=== PATIENT | female | born 1985 | race Caucasian/White ===

== ENCOUNTER 2016-08-29 23:18 | Emergency (ER) | payer SELFPAY ==
[2016-08-29] MEDS ORDERED: Bacitracin Oint 1 GM U/D Packet TOP ONE (23:29)
[2016-08-29] MEDS ORDERED: Diphtheria,Pertussis(Acell),Tetanus Vaccine 0.5 ML SDV IM ONE (23:29)
[2016-08-29] MEDS ORDERED: Lidocaine 1% 30 ML SDV INJECT ONE (23:29)
[2016-08-29 23:53] VITALS: BP 111/54
--- NOTE | 2016-08-30 00:16 | EDM.PDOC ---
ED HPI GENERAL MEDICAL PROBLEM - General Chief Complaint: Laceration Stated Complaint: CUT ON ARM [id number] Time Seen by Provider: 08/29/16 23:28 Source of Information: Reports: Patient History Limitations: Reports: No Limitations - History of Present Illness INITIAL COMMENTS - FREE TEXT/NARRATIVE: This 31 yo female patient reports to the ED with a laceration to her left forearm. The patient reports she was having "primer boxer wars" with her brother this morning at about 1100 when the injury happened. The patient has been attempting to control the bleeding since the time of the incident. Onset Date: 08/29/16 Onset Time: 11:00 Duration: Constant Location: Reports: Upper Extremity, Left Quality: Reports: Ache, Dull Severity: Mild Improves with: Reports: None Worsens with: Reports: None Context: Reports: Other Associated Symptoms: Reports: No Other Symptoms Left Lower Arm Pain Score (Numeric/FACES): 7 - Related Data Allergies Allergy/AdvReac Type Severity Reaction Status Date / Time ketorolac [From Toradol] Allergy Itching Verified 08/29/16 23:52 Home Meds: Home Meds . [No Known Home Meds] 08/29/16 [History] Past Medical History - Past Health History Medical/Surgical History: Denies Medical/Surgical History Social & Family History - Tobacco Use Smoking Status *Q: Current Every Day Smoker Years of Tobacco use: 20 Packs/Tins Daily: 0.5 Used Tobacco, but Quit: No - Caffeine Use Caffeine Use: Reports: Coffee, Soda - Recreational Drug Use Recreational Drug Use: No ED ROS GENERAL - Review of Systems Review Of Systems: ROS reveals no pertinent complaints other than HPI. ED EXAM, SKIN/RASH Exam: See Below Exam Limited By: No Limitations General Appearance: Alert, WD/WN, Anxious Eye Exam: Bilateral Eye: EOMI, Normal Inspection, PERRL Ears: Normal External Exam, Normal Canal, Hearing Grossly Normal, Normal TMs Nose: Normal Inspection, Normal Mucosa, No Blood Throat/Mouth: Normal Inspection, Normal Lips, Normal Teeth, Normal Gums, Normal Oropharynx, Normal Voice, No Airway Compromise Head: Atraumatic Neck: Normal Inspection, Supple, Non-Tender, Full Range of Motion Respiratory/Chest: No Respiratory Distress, Lungs Clear, Normal Breath Sounds, No Accessory Muscle Use, Chest Non-Tender Cardiovascular: Normal Peripheral Pulses, Regular Rate, Rhythm, No Edema, No Gallop, No JVD, No Murmur, No Rub GI/Abdominal: Normal Bowel Sounds, Soft, Non-Tender, No Organomegaly, No Distention, No Abnormal Bruit, No Mass (Female) Exam: Deferred Rectal (Female) Exam: Deferred Back Exam: Normal Inspection, Full Range of Motion, NT Extremities: Normal Range of Motion, No Pedal Edema, Normal Capillary Refill, Other (tenterness to the left forearm) Neurological: Alert, Oriented, CN II-XII Intact, Normal Cognition, Normal Gait, Normal Reflexes, No Motor/Sensory Deficits Psychiatric: Normal Affect, Normal Mood Skin: Warm, Dry, Normal Color, No Rash Location, Skin: Upper Extremity, Left Characteristics: Linear, Other (the patient had several other superficial lacerations to her forearm. The patient reports no intention to harm herself. ) ED SKIN PROCEDURES - Laceration/Wound Repair Left Arm Lac/Wound length In cm: 2.5 Appearance: Subcutaneous Anesthetic Type: Local Local Anesthesia - Lidocaine (Xylocaine): 1% Plain Local Anesthetic Volume: 3cc Skin Prep: Chlorhexidine (Hibiciens), Saline Exploration/Debridement/Repair: Wound Explored, in a Bloodless Field, Explored to Base, No Foreign Material Found Closed with: Sutures Suture Size: 4-0 # of Sutures: 8 Suture Type: Prolene, Interrupted, Simple Drain Placement: No Sterile Dressing Applied: Nurse Tetanus Status Addressed: Yes Complications: No Course - Vital Signs Last Recorded V/S: Last Vital Signs Temp 36.6 C 08/29/16 23:52 Pulse 86 08/29/16 23:52 Resp 16 08/29/16 23:52 BP 111/54 L 08/29/16 23:52 Pulse Ox 96 08/29/16 23:52 - Orders/Labs/Meds Orders: Active Orders 24 hr Category Date Time Status Vaccines to be Administered [RC] PER UNIT ROUTINE Care 08/29/16 23:29 Ordered Meds: Medications Discontinued Medications Generic Name Dose Route Start Last Admin Trade Name Freq PRN Reason Stop Dose Admin Bacitracin 1 dose 08/29/16 23:29 08/29/16 23:36 Bacitracin Oint 1 Gm TOP 08/29/16 23:30 1 dose ONETIME ONE Administration Diphtheria/Tetanus/Acell Pertussis 0.5 ml 08/29/16 23:29 07/03/17 23:37 Adacel IM 08/29/16 23:30 0.5 ml .ONCE ONE Administration Lidocaine HCl 30 ml 08/29/16 23:29 08/29/16 23:38 Xylocaine-Mpf 1% INJECT 08/29/16 23:30 30 ml ONETIME ONE Administration Departure - Departure Time of Disposition: 00:14 Disposition: Home, Self-Care 01 Condition: Fair Clinical Impression: Laceration of forearm, left Qualifiers: Encounter type: initial encounter Qualified Code(s): S51.812A - Laceration without foreign body of left forearm, initial encounter - Discharge Information Instructions: Laceration Care, Adult, [id number] Forms: ED Department Discharge Care Plan Goals: The patient was advised of the examination results during the visit. The laceration margins were well approximated during the visit. The patient was advised to keep the area clean and dry over the next 24 hours. The patient should have the sutures removed in 10-14 days. If the patient has any additional symptoms or concerns, the patient should follow-up with her primary care facility or return to the emergency department. - My Orders Last 24 Hours: My Active Orders 08/29/16 23:29 Vaccines to be Administered [RC] PER UNIT ROUTINE - Assessment/Plan Last 24 Hours: My Active Orders 08/29/16 23:29 Vaccines to be Administered [RC] PER UNIT ROUTINE
== END 2016-08-30 00:27 | disposition home or self-care (01) ==
LOC: DL.ED 23:18
DX: S51.812A Laceration without foreign body of left forearm, initial encounter (principal); F17.210 Nicotine dependence, cigarettes, uncomplicated; Z23 Encounter for immunization; Z88.6 Allergy status to analgesic agent; W27.8XXA Contact with other nonpowered hand tool, initial encounter
CPT/HCPCS: 12001; 90471; 90715; 99282; 99283

== ENCOUNTER 2016-10-01 10:13 | Emergency (ER) | payer SELFPAY ==
[2016-10-01 10:36] VITALS: BP 134/96
--- NOTE | 2016-10-01 10:49 | EDM.PDOC ---
Scribed by Kori Russo 10/01/16 1048 for Adama Ascencio MD ED HPI GENERAL MEDICAL PROBLEM - General Chief Complaint: Lower Extremity Injury/Pain Stated Complaint: [id number] LEFT KNEE Time Seen by Provider: 10/01/16 10:25 Source of Information: Reports: Patient, RN, RN Notes Reviewed History Limitations: Reports: No Limitations - History of Present Illness INITIAL COMMENTS - FREE TEXT/NARRATIVE: Complains of chronic left knee pain that flared up 5-6 weeks ago without specific injury. Patient states left knee gives out. Diclofenac not helping. Seen in clinic by Thiago Newell and is being referred for an MRI of left knee. Pain is causing nausea. Location: Reports: Lower Extremity, Left Quality: Reports: Ache Severity: Severe Improves with: Reports: None Worsens with: Reports: None Associated Symptoms: Reports: No Other Symptoms Left Knee Pain Score (Numeric/FACES): 9 - Related Data Allergies Allergy/AdvReac Type Severity Reaction Status Date / Time ketorolac [From Toradol] Allergy Itching Verified 10/01/16 10:48 Home Meds: Home Meds Diclofenac Sodium [Diclofenac Sodium] 75 mg PO ASDIRECTED PRN 10/01/16 [History] Past Medical History - Past Health History Medical/Surgical History: Denies Medical/Surgical History Musculoskeletal History: Reports: Osteoarthritis (of left knee), Other (See Below) (Torn meniscus left knee and left knee ACL tear.) - Past Surgical History Musculoskeletal Surgical History: Reports: Other (See Below) (bilateral knee surgery.) Social & Family History - Tobacco Use Smoking Status *Q: Current Every Day Smoker Years of Tobacco use: 20 Packs/Tins Daily: 0.5 Used Tobacco, but Quit: No - Caffeine Use Caffeine Use: Reports: Coffee, Soda - Recreational Drug Use Recreational Drug Use: No Review of Systems - Review of Systems Review Of Systems: ROS reveals no pertinent complaints other than HPI. ED EXAM, GENERAL - Physical Exam Exam: See Below Exam Limited By: No Limitations General Appearance: Alert, WD/WN, No Apparent Distress, Obese Respiratory/Chest: No Respiratory Distress Extremities: Other (gneeralized tenderness, small effusion, decreased range of motion, mild swelling. No erythema. No increased warmth. ) Neurological: Alert, Oriented, CN II-XII Intact, Normal Cognition, Normal Gait, Normal Reflexes, No Motor/Sensory Deficits Psychiatric: Normal Affect, Normal Mood Skin Exam: Warm, Dry, Intact, Normal Color, No Rash Course - Vital Signs Last Recorded V/S: Last Vital Signs Temp 36.6 C 10/01/16 10:24 Pulse 102 H 10/01/16 10:24 Resp 20 10/01/16 10:24 BP 134/96 H 10/01/16 10:24 Pulse Ox 99 10/01/16 10:24 - Orders/Labs/Meds Orders: Active Orders 24 hr Category Date Time Status Immobilizer [RC] ASDIRECTED Care 10/01/16 10:36 Active DME for Discharge [COMM] Routine Oth 10/01/16 10:36 Ordered Departure - Departure Time of Disposition: 10:46 Disposition: Home, Self-Care 01 Condition: Good Clinical Impression: Internal derangement of left knee, Knee effusion, left - Discharge Information Instructions: Knee Effusion, [id number], Knee Pain, [id number] Forms: ED Department Discharge Additional Instructions: Wear knee immbolizer. Use crutches as needed for comfort. Follow up with Thiago Newell for MRI and orthopedic referral. Follow up with Thiago Newell for pain management medication. Rest, ice and elevate. - My Orders Last 24 Hours: My Active Orders 10/01/16 10:36 Immobilizer [RC] ASDIRECTED DME for Discharge [COMM] Routine - Assessment/Plan Last 24 Hours: My Active Orders 10/01/16 10:36 Immobilizer [RC] ASDIRECTED DME for Discharge [COMM] Routine I have read and agree with the documentation that has been completed regarding this visit. By signing this record, I attest that the documentation was completed in my physical presence and is an accurate record of the encounter.
== END 2016-10-01 10:52 | disposition home or self-care (01) ==
LOC: DL.ED 10:13
DX: M23.92 Unspecified internal derangement of left knee (principal); F17.210 Nicotine dependence, cigarettes, uncomplicated; Z88.8 Allergy status to other drugs, medicaments and biological substances
CPT/HCPCS: 99282; 99283

== ENCOUNTER 2016-10-30 11:56 | Emergency (ER) | payer SELFPAY ==
[2016-10-30 13:04] VITALS: BP 133/89
--- NOTE | 2016-10-30 13:56 | EDM.PDOC ---
Scribed by Kori Russo 10/30/16 1342 for Adama Ascencio MD ED HPI GENERAL MEDICAL PROBLEM - General Chief Complaint: Lower Extremity Injury/Pain Stated Complaint: [id number] LEFT KNEE Time Seen by Provider: 10/30/16 13:00 Source of Information: Reports: Patient, RN, RN Notes Reviewed History Limitations: Reports: No Limitations - History of Present Illness INITIAL COMMENTS - FREE TEXT/NARRATIVE: Arrives from home with complaint of chronic left knee pain, which has been worsening she has been working 2 jobs on her feet. She bas been unable to be seen in clinic due to no insurance. Location: Reports: Upper Extremity, Left Quality: Reports: Ache Severity: Severe Improves with: Reports: None Worsens with: Reports: None Associated Symptoms: Reports: No Other Symptoms Left Knee Pain Score (Numeric/FACES): 10 - Related Data Allergies Allergy/AdvReac Type Severity Reaction Status Date / Time ketorolac [From Toradol] Allergy Itching Verified 10/01/16 10:48 Home Meds: Home Meds Diclofenac Sodium [Diclofenac Sodium] 75 mg PO ASDIRECTED PRN 10/01/16 [History] Past Medical History - Past Health History Medical/Surgical History: Denies Medical/Surgical History Musculoskeletal History: Reports: Osteoarthritis (of left knee), Other (See Below) (Torn meniscus left knee and left knee ACL tear.) - Infectious Disease History Infectious Disease History: Reports: Chicken Pox - Past Surgical History Musculoskeletal Surgical History: Reports: Other (See Below) (bilateral knee surgery.) Social & Family History - Family History Family Medical History: Noncontributory - Tobacco Use Smoking Status *Q: Current Every Day Smoker Years of Tobacco use: 20 Packs/Tins Daily: 0.5 Used Tobacco, but Quit: No Second Hand Smoke Exposure: Yes - Caffeine Use Caffeine Use: Reports: Coffee, Soda - Recreational Drug Use Recreational Drug Use: No Review of Systems - Review of Systems Review Of Systems: ROS reveals no pertinent complaints other than HPI. ED EXAM, GENERAL - Physical Exam Exam: See Below Exam Limited By: No Limitations General Appearance: Alert, WD/WN, No Apparent Distress, Obese Respiratory/Chest: No Respiratory Distress Extremities: Other (left knee with generalized tenderness. No visible swelling, bruising or deformity. Skin intact. ) Neurological: Alert, Oriented, CN II-XII Intact, Normal Cognition, Normal Gait, Normal Reflexes, No Motor/Sensory Deficits Psychiatric: Depressed Mood, Tearful Skin Exam: Warm, Dry, Intact, Normal Color, No Rash Course - Vital Signs Last Recorded V/S: Last Vital Signs Temp 36.6 C 10/30/16 13:03 Pulse 94 10/30/16 13:03 Resp 16 10/30/16 13:03 BP 133/89 10/30/16 13:03 Pulse Ox 100 10/30/16 13:03 - Radiology Interpretation Free Text/Narrative:: Reviewed knee x-ray from 10/01/16. Departure - Departure Time of Disposition: 13:34 Disposition: Home, Self-Care 01 Condition: Good Clinical Impression: Internal derangement of left knee - Discharge Information Instructions: Knee Pain, Knee Effusion, Edcg-or-Xzzq Forms: ED Department Discharge Additional Instructions: RX: Tramadol 50mg. RX: Hydroxyzine 25mg. Use crutches. Rest, ice and elevate left knee. Follow up with orthopedic surgeon first available opportunity. I have read and agree with the documentation that has been completed regarding this visit. By signing this record, I attest that the documentation was completed in my physical presence and is an accurate record of the encounter.
== END 2016-10-30 13:42 | disposition home or self-care (01) ==
LOC: DL.ED 11:56
DX: M23.92 Unspecified internal derangement of left knee (principal); M19.90 Unspecified osteoarthritis, unspecified site; F17.210 Nicotine dependence, cigarettes, uncomplicated; Z98.890 Other specified postprocedural states; Z88.6 Allergy status to analgesic agent
CPT/HCPCS: 99283

== ENCOUNTER 2017-01-12 20:06 | Emergency (ER) | payer SELFPAY ==
--- NOTE | 2017-01-12 20:17 | EDM.PDOC ---
ED HPI GENERAL MEDICAL PROBLEM - General Chief Complaint: Head Injury Stated Complaint: CAME BY AMBULANCE Time Seen by Provider: 01/12/17 20:14 Source of Information: Reports: Patient History Limitations: Reports: No Limitations - History of Present Illness INITIAL COMMENTS - FREE TEXT/NARRATIVE: states knee gave out fell forward hitting head and bit right upper lip, was LOC , denies had TL. Right Parietal Head Pain Score (Numeric/FACES): 8 - Related Data Allergies Allergy/AdvReac Type Severity Reaction Status Date / Time ketorolac [From Toradol] Allergy Itching Verified 01/12/17 20:15 Home Meds: Home Meds Diclofenac Sodium [Diclofenac Sodium] 75 mg PO ASDIRECTED PRN 10/01/16 [History] traMADol [Ultram] 50 mg PO Q6H PRN 01/12/17 [History] Past Medical History - Past Health History Medical/Surgical History: Denies Medical/Surgical History Gastrointestinal History: Reports: GERD [employer] History: Reports: Ectopic Musculoskeletal History: Reports: Osteoarthritis (of left knee), Other (See Below) (Torn meniscus left knee and left knee ACL tear.) - Infectious Disease History Infectious Disease History: Reports: Chicken Pox - Past Surgical History Musculoskeletal Surgical History: Reports: Other (See Below) (bilateral knee surgery.) Social & Family History - Family History Family Medical History: Noncontributory - Tobacco Use Smoking Status *Q: Current Every Day Smoker Years of Tobacco use: 20 Packs/Tins Daily: 0.5 Used Tobacco, but Quit: No Second Hand Smoke Exposure: Yes - Caffeine Use Caffeine Use: Reports: Coffee, Soda - Recreational Drug Use Recreational Drug Use: No ED ROS GENERAL - Review of Systems Review Of Systems: ROS reveals no pertinent complaints other than HPI. ED EXAM, HEAD INJURY - Physical Exam Exam: See Below Exam Limited By: No Limitations General Appearance: Alert, WD/WN, Mild Distress, Other (crying) Head: Scalp Abrasions, Scalp Tenderness, Other (right upper lip). No: Felipe's Sign, Raccoon Eyes Nexus Criteria: No: Posterior, Midline Cervical Tenderness, Evidence of Intoxication, Altered Level of Consciousness, Focal Neurological Deficit, Painful Distraction Injuries Eyes: Bilateral Eye: PERRL (pupils ER @ 4mm) Ears: Hearing Grossly Normal Throat/Mouth: Other (right upper lip lac', teeth intact) Neck: Non-Tender, Full Range of Motion Respiratory: No Respiratory Distress Cardiovascular: Regular Rate, Rhythm GI/Abdominal Exam: Soft, Non-Tender Neurologic: No Motor/Sensory Deficits, Alert, Normal Mood/Affect, Oriented x 3 Skin: Normal Color, Warm/Dry - [place] Coma Score Best Eye Response (Gerardo): (4) Open Spontaneously Best Verbal Response ([place]): (5) Oriented Best Motor Response ([place]): (6) Obeys Commands ED LACERATION/WOUND & BIJU PROC - Laceration/Wound Repair Mouth Lac/wound length in cm: 1 (right upper lip) Appearance: Linear, Clean Anesthetic Type: Local Local Anesthesia - Lidocaine (Xylocaine): 1% with EPI Local Anesthetic Volume: 3cc Skin Prep: Chlorhexidine (Hibiciens) Saline irrigation (cc's): 20 Exploration/Debridement/Repair: Wound Explored, In a Bloodless Field, No Foreign Material Found Closed with: Sutures Suture Size: 4-0 Suture Type: Nylon, Interrupted Sterile Dressing Applied: None Tetanus Status Addressed: Yes Complications: No Course - Vital Signs Last Recorded V/S: Last Vital Signs Temp 37.0 C 01/12/17 20:19 Pulse 81 01/12/17 20:19 Resp 18 01/12/17 20:19 BP 142/81 H 01/12/17 20:19 Pulse Ox 98 01/12/17 20:19 - Orders/Labs/Meds Orders: Active Orders 24 hr Category Date Time Status Acetaminophen/HYDROcodone [[place] 325-10 MG] Med 01/12/17 21:34 Once 1 tab PO ONETIME ONE Medication Orders Hydrocodone Bitart/Acetaminophen ([place] 325-10 Mg) 1 tab PO ONETIME ONE Stop: 01/12/17 21:35 Meds: Medications Generic Name Dose Route Start Last Admin Trade Name Freq PRN Reason Stop Dose Admin Hydrocodone Bitart/Acetaminophen 1 tab 01/12/17 21:34 [place] 325-10 Mg PO 01/12/17 21:35 ONETIME ONE Discontinued Medications Generic Name Dose Route Start Last Admin Trade Name Freq PRN Reason Stop Dose Admin Lidocaine/Epinephrine 20 ml 01/12/17 20:23 01/12/17 20:30 Xylocaine 1% With Epinephrine 1:100,000 INJECT 01/12/17 20:24 20 ml ONETIME ONE Administration Ondansetron HCl 4 mg 01/12/17 20:48 01/12/17 20:52 Zofran Odt PO 01/12/17 20:49 4 mg ONETIME ONE Administration - Re-Assessments/Exams Free Text/Narrative Re-Assessment/Exam: 01/12/17 21:35 results discussed with pt & family Departure - Departure Time of Disposition: 21:35 Disposition: Home, Self-Care 01 Clinical Impression: Concussion with less than 1 hour loss of consciousness Lip laceration Qualifiers: Encounter type: initial encounter Qualified Code(s): S01.511A - Laceration without foreign body of lip, initial encounter - Discharge Information Instructions: Concussion, Adult, [id number] Forms: ED Department Discharge Additional Instructions: 1) keep wound clean and dry 2) suture removal 1 week 3) recheck if looks infected rx given; vicodin 5/325mg bid prn x 12 zofran 4mg ODT bid prn x 6 - My Orders Last 24 Hours: My Active Orders 01/12/17 21:34 Acetaminophen/HYDROcodone [[place] 325-10 MG] 1 tab PO ONETIME ONE - Assessment/Plan Last 24 Hours: My Active Orders 01/12/17 21:34 Acetaminophen/HYDROcodone [[place] 325-10 MG] 1 tab PO ONETIME ONE
[2017-01-12] MEDS ORDERED: Lidocaine 1% with EPINEPHrine 1:100,000 20 ML MDV INJECT ONE (20:23)
[2017-01-12] MEDS ORDERED: Ondansetron 4 MG Tab.DIS PO ONE (20:48)
[2017-01-12] MEDS ORDERED: Acetaminophen/HYDROcodone 325-10 MG Tab PO ONE (21:34)
[2017-01-12 21:58] VITALS: BP 127/91
== END 2017-01-12 21:46 | disposition home or self-care (01) ==
LOC: DL.ED 20:06
DX: S06.0X1A Concussion with loss of consciousness of 30 minutes or less, initial encounter (principal); S01.511A Laceration without foreign body of lip, initial encounter; F17.210 Nicotine dependence, cigarettes, uncomplicated; Z88.6 Allergy status to analgesic agent; W19.XXXA Unspecified fall, initial encounter
CPT/HCPCS: 12011; 70450; 70486; 99284; A9270; 99283

== ENCOUNTER 2017-01-19 10:39 | Emergency (ER) | payer SELFPAY ==
[2017-01-19 10:58] VITALS: BP 146/96
--- NOTE | 2017-01-19 11:55 | EDM.PDOC ---
ED HPI GENERAL MEDICAL PROBLEM - General Chief Complaint: General Stated Complaint: [id number] NEEDS STITCHES OUT Time Seen by Provider: 01/19/17 11:45 Source of Information: Reports: Patient History Limitations: Reports: No Limitations - History of Present Illness INITIAL COMMENTS - FREE TEXT/NARRATIVE: This 32 yo female patient reports to the ED to have sutures removed from her right upper lip. The patient reports she fell, hit her head and split her lip 7 days ago. The patient had sutures placed in her lip and was advised to have the sutures removed in 7 days. Onset: Today Duration: Constant Location: Reports: Face Quality: Reports: Ache, Sharp Severity: Mild Improves with: Reports: None Worsens with: Reports: None Associated Symptoms: Reports: No Other Symptoms Lip Pain Score (Numeric/FACES): 7 - Related Data Allergies Allergy/AdvReac Type Severity Reaction Status Date / Time ketorolac [From Toradol] Allergy Itching Verified 01/19/17 10:53 Home Meds: Home Meds Diclofenac Sodium [Diclofenac Sodium] 75 mg PO ASDIRECTED PRN 10/01/16 [History] traMADol [Ultram] 100 mg PO Q6H PRN 01/12/17 [History] Ibuprofen 800 mg PO ASDIRECTED PRN 01/19/17 [History] Past Medical History - Past Health History Medical/Surgical History: Denies Medical/Surgical History Cardiovascular History: Reports: None Respiratory History: Reports: None Gastrointestinal History: Reports: GERD Genitourinary History: Reports: None [employer] History: Reports: Ectopic Musculoskeletal History: Reports: Osteoarthritis Neurological History: Reports: None Psychiatric History: Reports: None Endocrine/Metabolic History: Reports: None Hematologic History: Reports: None Immunologic History: Reports: None Oncologic (Cancer) History: Reports: None Dermatologic History: Reports: None - Infectious Disease History Infectious Disease History: Reports: Chicken Pox - Past Surgical History Head Surgeries/Procedures: Reports: None HEENT Surgical History: Reports: Tonsillectomy Female Surgical History: Reports: Section Social & Family History - Family History Family Medical History: Noncontributory - Tobacco Use Smoking Status *Q: Current Every Day Smoker Years of Tobacco use: 20 Packs/Tins Daily: 0.5 Used Tobacco, but Quit: No Second Hand Smoke Exposure: No - Caffeine Use Caffeine Use: Reports: Energy Drinks - Recreational Drug Use Recreational Drug Use: No ED ROS GENERAL - Review of Systems Review Of Systems: ROS reveals no pertinent complaints other than HPI. ED EXAM, GENERAL - Physical Exam Exam: See Below Exam Limited By: No Limitations General Appearance: Alert, WD/WN, No Apparent Distress Eye Exam: Right Eye: Other (contusion with signs of healing to lower right eye) , Left Eye: Normal Inspection, Bilateral Eye: EOMI, PERRL Ears: Normal External Exam, Normal Canal, Hearing Grossly Normal, Normal TMs Nose: Normal Inspection, Normal Mucosa, No Blood Throat/Mouth: Normal Inspection, Normal Teeth, Normal Gums, Normal Oropharynx, Normal Voice, No Airway Compromise, Other (2 sutures in the right upper lip. Laceration appears to be healing well. The patient reports the 3rd suture fell out) Head: Atraumatic, Normocephalic Neck: Normal Inspection, Supple, Non-Tender, Full Range of Motion Respiratory/Chest: No Respiratory Distress, Lungs Clear, Normal Breath Sounds, No Accessory Muscle Use, Chest Non-Tender Cardiovascular: Normal Peripheral Pulses, Regular Rate, Rhythm, No Edema, No Gallop, No JVD, No Murmur, No Rub GI/Abdominal: Normal Bowel Sounds, Soft, Non-Tender, No Organomegaly, No Distention, No Abnormal Bruit, No Mass (Female) Exam: Deferred Rectal (Female) Exam: Deferred Back Exam: Normal Inspection, Full Range of Motion, NT Extremities: Normal Inspection, Normal Range of Motion, Non-Tender, Normal Capillary Refill, No Pedal Edema Neurological: Alert, Oriented, CN II-XII Intact, Normal Cognition, Normal Gait, Normal Reflexes, No Motor/Sensory Deficits Psychiatric: Normal Affect, Normal Mood Skin Exam: Warm, Dry, Intact, Normal Color, No Rash Lymphatic: No Adenopathy Course - Vital Signs Last Recorded V/S: Last Vital Signs Temp 36.3 C 01/19/17 10:50 Pulse 75 01/19/17 10:50 Resp 16 01/19/17 10:50 BP 146/96 H 01/19/17 10:57 Pulse Ox 96 01/19/17 10:50 Departure - Departure Time of Disposition: 11:53 Disposition: Home, Self-Care 01 Condition: Fair Clinical Impression: Visit for suture removal - Discharge Information Instructions: Suture Removal, Care After Forms: ED Department Discharge Care Plan Goals: The patient was advised of the examination results during the visit. The sutures were removed without incident. The patient was encourage to continue to monitor the area. If the patient has any additional symptoms or concerns, the patient should follow-up with her primary care facility or return to the emergency department.
== END 2017-01-19 11:58 | disposition home or self-care (01) ==
LOC: DL.ED 10:39
DX: S01.511D Laceration without foreign body of lip, subsequent encounter (principal); S00.83XD Contusion of other part of head, subsequent encounter; F17.210 Nicotine dependence, cigarettes, uncomplicated; Z88.6 Allergy status to analgesic agent; W19.XXXD Unspecified fall, subsequent encounter
CPT/HCPCS: 12011; 99281; 99283

== ENCOUNTER 2017-03-05 21:31 | Emergency (ER) | payer BC ==
[2017-03-05 21:38] VITALS: BP 168/86
--- NOTE | 2017-03-05 22:05 | EDM.PDOC ---
ED HPI GENERAL MEDICAL PROBLEM - General Chief Complaint: Lower Extremity Injury/Pain Stated Complaint: KNEE PAIN [id number] Time Seen by Provider: 03/05/17 21:45 Source of Information: Reports: Patient History Limitations: Reports: No Limitations - History of Present Illness INITIAL COMMENTS - FREE TEXT/NARRATIVE: c/o pain to left knee. No new injury. Reports needing knee replacement but has to wait for insurance coverage. Tramadol this am. Knee swelling, wondering if can just drain off fluid. Difficulty y to find comfrotable position to sleep. Pain worse when first standing on knee in am or after period of sitting. Treatments YOUTH ASSOCIATE: Reports: Other (see below) Other Treatments YOUTH ASSOCIATE: ibuprofen, tramadol Left Knee Pain Score (Numeric/FACES): 10 - Related Data Allergies Allergy/AdvReac Type Severity Reaction Status Date / Time ketorolac [From Toradol] Allergy Itching Verified 03/05/17 21:39 Home Meds: Home Meds Diclofenac Sodium [Diclofenac Sodium] 75 mg PO ASDIRECTED PRN 10/01/16 [History] traMADol [Ultram] 100 mg PO Q6H PRN 01/12/17 [History] Ibuprofen 800 mg PO ASDIRECTED PRN 01/19/17 [History] Past Medical History - Past Health History Medical/Surgical History: Denies Medical/Surgical History HEENT History: Reports: Impaired Vision Cardiovascular History: Reports: None Respiratory History: Reports: None Gastrointestinal History: Reports: GERD Genitourinary History: Reports: None FINANCIAL SERVICES INTERNSHIP History: Reports: Ectopic Musculoskeletal History: Reports: Osteoarthritis Neurological History: Reports: None Psychiatric History: Reports: None Endocrine/Metabolic History: Reports: None Hematologic History: Reports: None Immunologic History: Reports: None Oncologic (Cancer) History: Reports: None Dermatologic History: Reports: None - Infectious Disease History Infectious Disease History: Reports: Chicken Pox - Past Surgical History Head Surgeries/Procedures: Reports: None HEENT Surgical History: Reports: Tonsillectomy Female Surgical History: Reports: Section Social & Family History - Family History Family Medical History: Noncontributory - Tobacco Use Smoking Status *Q: Current Every Day Smoker Years of Tobacco use: 20 Packs/Tins Daily: 0.5 Used Tobacco, but Quit: No Second Hand Smoke Exposure: Yes - Caffeine Use Caffeine Use: Reports: Energy Drinks - Recreational Drug Use Recreational Drug Use: No Review of Systems - Review of Systems Review Of Systems: ROS reveals no pertinent complaints other than HPI. ED EXAM, GENERAL - Physical Exam Exam: See Below Exam Limited By: No Limitations General Appearance: Alert, Mild Distress Eye Exam: Bilateral Eye: EOMI Ears: Normal External Exam Throat/Mouth: Normal Voice Head: Normocephalic Neck: Full Range of Motion Respiratory/Chest: No Respiratory Distress Cardiovascular: Normal Peripheral Pulses, Regular Rate, Rhythm Extremities: Limited Range of Motion (left knee limited extension, pain with movment, moderate effusion, mild crepitus, no laxity tender medial palpation.). No: Normal Range of Motion Neurological: Alert, Oriented Skin Exam: Warm, Dry, Intact Course - Vital Signs Last Recorded V/S: Last Vital Signs Temp 98.3 F 03/05/17 21:37 Pulse 94 03/05/17 21:37 Resp 18 03/05/17 21:37 BP 168/86 H 03/05/17 21:37 Pulse Ox 99 03/05/17 21:37 Departure - Departure Time of Disposition: 22:01 Disposition: Home, Self-Care 01 Condition: Good Clinical Impression: Effusion, left knee Left knee pain Qualifiers: Chronicity: chronic Qualified Code(s): M25.562 - Pain in left knee - Discharge Information Instructions: Knee Effusion, [id number] Forms: ED Department Discharge Additional Instructions: Rest extremity ice, kai wrap to knee Utilize crutches Follow up with primary care for ongoing pain management May take one tylenol with tramadol
== END 2017-03-05 22:09 | disposition home or self-care (01) ==
LOC: DL.ED 21:31
DX: M25.462 Effusion, left knee (principal); F17.210 Nicotine dependence, cigarettes, uncomplicated; Z88.6 Allergy status to analgesic agent
CPT/HCPCS: 99283